=== PATIENT | male | born 2005 | race Caucasian/White ===

== ENCOUNTER 2025-06-01 10:02 | Emergency (ER) | payer OTHER ==
[~2025-06-01] VITALS: Ht 177.8 cm; Wt 74.6 kg
[2025-06-01] MEDS ORDERED: AMIT25TA19 PO (14:26)
[2025-06-01] MEDS ORDERED: ONDA-282 PO (14:26)
[2025-06-01 14:54] VITALS: BP 130/82; TEMP 98; O2SAT 97
== END 2025-06-01 14:56 | disposition home or self-care (01) ==
LOC: M ED 10:02
DX: S06.0X0A Concussion without loss of consciousness, initial encounter (principal); X58.XXXA Exposure to other specified factors, initial encounter; Z79.83 Long term (current) use of bisphosphonates; Z79.899 Other long term (current) drug therapy; Y92.9 Unspecified place or not applicable; Y93.9 Activity, unspecified; Y99.9 Unspecified external cause status